=== PATIENT | male | born 1985 | race African-American/Black ===

== ENCOUNTER 2018-10-23 21:51 | Emergency (ER) | payer SELFPAY ==
[~2018-10-23] VITALS: Ht 175.3 cm; Wt 95.7 kg
[2018-10-23 22:00] VITALS: BP 176/99
[2018-10-23] MEDS ORDERED: HYDR-3164 PO (23:55)
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
== END 2018-10-24 00:18 | disposition home or self-care (01) ==
LOC: ER 21:51
DX: S62.344A Nondisplaced fracture of base of fourth metacarpal bone, right hand, initial encounter for closed fracture (principal); S62.346A Nondisplaced fracture of base of fifth metacarpal bone, right hand, initial encounter for closed fracture; R07.81 Pleurodynia; Z72.0 Tobacco use; Z88.0 Allergy status to penicillin; V43.62XA Car passenger injured in collision with other type car in traffic accident, initial encounter; Y93.89 Activity, other specified; Y92.410 Unspecified street and highway as the place of occurrence of the external cause; Y99.8 Other external cause status
CPT/HCPCS: 29125; 29130; 71101; 73130; 99283

== ENCOUNTER 2018-10-25 03:45 | Emergency (ER) | payer SELFPAY ==
[~2018-10-25] VITALS: Ht 188 cm; Wt 95.7 kg
[~2018-10-25 03:45] MED LIST: HYDR-3164 PO
[2018-10-25 04:18] LABS: BASO # 0.1 x10^3/uL (0.0-0.2); BASO % 1 % (0-3); EOS % 0 % (0-3); HEMATOCRIT 39.7 % (39.0-53.0); HEMOGLOBIN 12.8 g/dL (13.0-17.5); LYMPH # 2.2 x10^3/uL (1.0-4.8); LYMPH % 17 % (24-48); MEAN CORPUSCULAR HEMOGLOBIN 27 pg (25-35); MEAN CORPUSCULAR HGB CONC 32 g/dL (31-37); MEAN CORPUSCULAR VOLUME 83 fL (79-100); MONO # 0.6 x10^3/uL (0.0-1.1); MONO % 5 % (0-9); NEUT # 9.7 x10^3uL (1.8-7.7); NEUT % 77 % (31-73); PLATELET COUNT 284 x10^3/uL (140-400); RED CELL DISTRIBUTION WIDTH 14.7 % (11.5-14.5); WHITE BLOOD COUNT 12.6 x10^3/uL (4.0-11.0)
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
[2018-10-25 04:24] LABS: CALCIUM 8.9 mg/dL (8.5-10.1); CREATININE 1.2 mg/dL (0.7-1.3); GFR 85.4; POTASSIUM 3.2 mmol/L (3.5-5.1)
[2018-10-25] MEDS ORDERED: IV NORMAL SALINE 1000ML BAG 1,000 ML IV ONE (04:30)
[2018-10-25 04:31] LABS: ALBUMIN 3.9 g/dL (3.4-5.0); ALBUMIN/GLOBULIN RATIO 1.2 (1.0-1.7); TOTAL PROTEIN 7.1 g/dL (6.4-8.2)
[2018-10-25] MEDS ORDERED: POTASSIUM CHLORIDE 20 MEQ TABLET.ER. PO ONE (05:00)
[2018-10-25 05:23] VITALS: BP 178/106
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
--- NOTE | 2018-10-25 07:49 | RAD ---
CHEST PA LATERAL Technique: PA and lateral views of the chest were obtained. Clinical History: CHEST PAIN. Comparison: September 23, 2008. Findings: The heart and pulmonary vasculature appear within normal limits. The lungs are clear. The pleural margins are clear. Impression: No acute chest process is seen. Electronically signed by: Joaquín James III, MD (10/25/2018 7:46 AM) [facility]
--- NOTE | 2018-10-25 10:52 | EKG ---
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
== END 2018-10-25 05:40 | disposition home or self-care (01) ==
LOC: ER 03:45
DX: S62.316D Displaced fracture of base of fifth metacarpal bone, right hand, subsequent encounter for fracture with routine healing (principal); R07.89 Other chest pain; E87.6 Hypokalemia; I10 Essential (primary) hypertension; Z88.0 Allergy status to penicillin; X58.XXXA Exposure to other specified factors, initial encounter
CPT/HCPCS: 29125; 36415; 71046; 73130; 80053; 82553; 83690; 83735; 84484; 85025; 93005; 99284; J7030

== ENCOUNTER 2021-05-12 16:14 | Emergency (ER) | payer SELFPAY ==
[~2021-05-12] VITALS: Ht 175.3 cm; Wt 91.4 kg
--- NOTE | 2021-05-12 16:52 | PHYS DOC ---
Past Medical History Past Medical History: Hypertension Past Surgical History: No Surgical History Smoking Status: Never Smoker Alcohol Use: None Drug Use: Marijuana General Adult EDM: Chief Complaint: HYPERTENSION HPI: HPI: 36-year-old male presents the emergency department with headache for 4 days he reports that the headache starts in the back of his neck and radiates toward the towards his forehead. He reports that his pain is intermittent, not related to anything in particular, developed gradually, not associate with any injury or trauma that he can report. There is no sudden onset of the headache when it started. He has had headaches in the past but states this 1 is more severe. He denies any nausea, vomiting, diarrhea, chest pain, shortness of breath, vision change, further pain anywhere else, abdominal pain. Review of Systems: Review of Systems: ROS otherwise negative except for what was mentioned in HPI Heart Score: C/O Chest Pain: No Allergies: Allergies: Allergies Coded Allergies Type Severity Reaction Last Updated Verified Penicillins Allergy Intermediate 10/23/18 Yes Physical Exam: PE: Constitutional: No acute distress, non-toxic appearance. HENT: Atraumatic, bilateral external ears normal, nose normal. Eyes: PERRLA, EOMI, conjunctiva normal, no discharge. Neck: Normal range of motion, supple, no stridor. Cardiovascular: Heart rate regular rhythm. 2+ radial pulses Lungs & Thorax: No respiratory distress, symmetrical expansion. Bilateral breath sounds clear to auscultation Abdomen: Soft, no tenderness Skin: Warm, dry. Extremities: No tenderness, no cyanosis, ROM intact, no edema. Neurologic: Alert and oriented X 3, cranial nerves II through XII are intact, normal motor function, normal sensory function, no focal deficits noted. Non ataxic gait. GCS 15. Psychologic: Affect normal, judgment normal, mood normal. Current Patient Data: Labs: Laboratory Tests Test 05/12/21 16:57 White Blood Count 12.0 x10^3/uL (4.0-11.0) Red Blood Count 5.09 x10^6/uL (4.30-5.70) Hemoglobin 13.9 g/dL (13.0-17.5) Hematocrit 42.0 % (39.0-53.0) Mean Corpuscular Volume 83 fL (79-100) Mean Corpuscular Hemoglobin 27 pg (25-35) Mean Corpuscular Hemoglobin Concent 33 g/dL (31-37) Red Cell Distribution Width 14.8 % (11.5-14.5) Platelet Count 271 x10^3/uL (140-400) Neutrophils (%) (Auto) 77 % (31-73) Lymphocytes (%) (Auto) 16 % (24-48) Monocytes (%) (Auto) 6 % (0-9) Eosinophils (%) (Auto) 1 % (0-3) Basophils (%) (Auto) 1 % (0-3) Neutrophils # (Auto) 9.2 x10^3/uL (1.8-7.7) Lymphocytes # (Auto) 1.9 x10^3/uL (1.0-4.8) Monocytes # (Auto) 0.7 x10^3/uL (0.0-1.1) Eosinophils # (Auto) 0.1 x10^3/uL (0.0-0.7) Basophils # (Auto) 0.1 x10^3/uL (0.0-0.2) Sodium Level 138 mmol/L (136-145) Potassium Level 3.6 mmol/L (3.5-5.1) Chloride Level 100 mmol/L (98-107) Carbon Dioxide Level 29 mmol/L (21-32) Anion Gap 9 (6-14) Blood Urea Nitrogen 14 mg/dL (8-26) Creatinine 1.1 mg/dL (0.7-1.3) Estimated GFR (Cockcroft-Gault) 92.7 Glucose Level 99 mg/dL (70-99) Calcium Level 8.6 mg/dL (8.5-10.1) Troponin I Quantitative < 0.017 ng/mL (0.000-0.055) SG-Kno-J-Type Natriuretic Peptide 218 pg/mL (0-124) Vital Signs: Vital Signs Date Time Temp Pulse Resp B/P (MAP) Pulse Ox O2 Delivery O2 Flow Rate FiO2 05/12/21 16:35 98.1 84 16 178/126 (143) 16 98.1 EKG: EK: Normal sinus rhythm rate of 65, ST elevation is present in V3, T wave inversions are present in V4 through V6 there is no further reciprocal change. No ectopic beats, normal axis, normal ND, QRS, and QTc intervals. Impression: Compared with EKG on 10/25/2018, or T wave inversions and change in V3 is not present. EKG was discussed with Dr. Villanueva, elects not to page STEMI. Will repeat EKG. interpreted by me, Prince Enriquez D.O. 1727: Repeat EKG shows no acute change to above. Interpreted by me. Radiology/Procedures: Radiology/Procedures: EXAM: Head CT without contrast. HISTORY: Headache. TECHNIQUE: Computed tomographic images of the head were obtained without contrast. *One or more of the following individualized dose reduction techniques were utilized for this examination: 1. Automated exposure control. 2. Adjustment of the mA and/or kV according to patient size. 3. Use of iterative reconstruction technique. COMPARISON: None. FINDINGS: There is no acute or subacute extra-axial or intraparenchymal hemorrhage. There is no mass effect or midline shift. There is no hydrocephalus. The phillips-white matter differentiation pattern is intact. The orbits and visualized paranasal sinuses are unremarkable. The mastoid air cells are underpneumatized, a normal variant. IMPRESSION: No acute intracranial findings. Electronically signed by: Dena Epps MD (05/12/2021 5:11 PM) Course & Med Decision Making: Course & Med Decision Making I discussed the original EKG and the case with Dr. Villanueva after EKG was acquired and I read the EKG. No further intervention at this time, will require labs and repeat EKG Repeat EKG was unremarkable Labs are within normal limits Patient felt much better after interventions which included Compazine, Benadryl. Patient was discharged in stable condition. He is not driving home. Patient has no evidence of acute end organ damage from hypertension. I counseled the patient on their high blood pressure and the need to follow-up in the clinic to get this addressed. I provided resources for him to obtain a primary care physician and recommended that he rechecks his blood pressure. He was advised not to drive until tomorrow morning. My Orders - PRINCE ENRIQUEZ DO Procedure Category Date Status Time Prochlorperazine PHA 05/12/21 Complete (Compazine) 17:00 Diphenhydramine PHA 05/12/21 Complete (Benadryl) 17:00 Iv Normal Saline PHA 05/12/21 In Process 1000ml Bag (Iv Sodium 17:00 Ketorolac 15mg Vial PHA 05/12/21 Complete (Toradol 15mg Vial) 17:00 Ct Head Wo Contrast CT 05/12/21 Resulted 16:49 Troponini LAB 05/12/21 Complete 16:56 Nt-Pro Bnp LAB 05/12/21 Complete 16:56 12 Lead Ekg EKG 05/12/21 Complete 17:15 Cbc W Autodiff LAB 05/12/21 Complete 17:33 Basic Metabolic Panel LAB 05/12/21 Complete 17:33 Departure Departure Impression: Primary Impression: Migraine headache Additional Impression: Elevated blood pressure reading Disposition: HOME / SELF CARE / HOMELESS Condition: STABLE Referrals: NO PCP (PCP) Patient Instructions: Migraine Headache, Kozj-is-Kseu Additional Instructions: You were seen in the Emergency Department for headache. Please drink plenty of fluids -- at least 6-8 glasses of water per day. Dehydration can often precipitate headaches. Avoid alcohol and sugary or caffeinated beverages. Return to the Emergency Department, day or night, if you develop recurrent or worsening headache, vision changes, difficulty eating or drinking due to nausea or vomiting, weakness or numbness in the limbs, difficulty walking or fever. . You need to follow up with the medicine clinic for a repeat check and further evaluation and treatment of your blood pressure, which was elevated in the emergency department. It is important to have a primary doctor further investigate your blood pressure issues. You should return to the ED if you develop chest pain, shortness of breath, severe headache, or any other new or concerning symptoms. Losing some weight and improving your diet will be helpful in reducing your blood pressure as well. PRINCE ENRIQUEZ DO May 12, 2021 16:52
[2021-05-12] MEDS ORDERED: IV NORMAL SALINE 1000ML BAG 1,000 ML IV ONE (17:00)
[2021-05-12] MEDS ORDERED: KETOROLAC 15 MG/ML VIAL. IVP ONE (17:00)
[2021-05-12] MEDS ORDERED: diphenhydrAMINE 50 MG/ML VIAL IVP ONE (17:00)
[2021-05-12] MEDS ORDERED: PROCHLORPERAZINE 10 MG/2 ML VIAL. IV ONE (17:00)
--- NOTE | 2021-05-12 17:14 | RAD ---
EXAM: Head CT without contrast. HISTORY: Headache. TECHNIQUE: Computed tomographic images of the head were obtained without contrast. *One or more of the following individualized dose reduction techniques were utilized for this examina tion: 1. Automated exposure control. 2. Adjustment of the mA and/or kV according to patient size. 3. Use of iterative reconstruction technique. COMPARISON: None. FINDINGS: There is no acute or subacute extra-axial or intraparenchymal hemorrhage. There is no mass effect or midline shift. There is no hydrocephalus. The phillips-white matter differentiation pattern is intact. The orbits and visualized paranasal sinuses are unremarkable. The mastoid air cells are underpneumatized, a normal variant. IMPRESSION: No acute intracranial findings. Electronically signed by: Dena Epps MD (05/12/2021 5:11 PM) [id number]
--- NOTE | 2021-05-12 17:29 | EKG ---
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
[2021-05-12 17:42] LABS: BASO # 0.1 x10^3/uL (0.0-0.2); BASO % 1 % (0-3); EOS # 0.1 x10^3/uL (0.0-0.7); EOS % 1 % (0-3); HEMOGLOBIN 13.9 g/dL (13.0-17.5); LYMPH # 1.9 x10^3/uL (1.0-4.8); LYMPH % 16 % (24-48); MEAN CORPUSCULAR HEMOGLOBIN 27 pg (25-35); MEAN CORPUSCULAR HGB CONC 33 g/dL (31-37); MEAN CORPUSCULAR VOLUME 83 fL (79-100); MONO # 0.7 x10^3/uL (0.0-1.1); MONO % 6 % (0-9); NEUT # 9.2 x10^3/uL (1.8-7.7); NEUT % 77 % (31-73); PLATELET COUNT 271 x10^3/uL (140-400); RED BLOOD COUNT 5.09 x10^6/uL (4.30-5.70); RED CELL DISTRIBUTION WIDTH 14.8 % (11.5-14.5)
[2021-05-12 17:45] LABS: CALCIUM 8.6 mg/dL (8.5-10.1); CREATININE 1.1 mg/dL (0.7-1.3); GFR 92.7; POTASSIUM 3.6 mmol/L (3.5-5.1)
[2021-05-12] MEDS ORDERED: cloNIDine HCL 0.1 MG TABLET PO ONE (18:45)
[2021-05-12 20:37] VITALS: BP 165/106
== END 2021-05-12 20:50 | disposition home or self-care (01) ==
LOC: ER 16:14
DX: G43.909 Migraine, unspecified, not intractable, without status migrainosus (principal); I10 Essential (primary) hypertension; Z88.0 Allergy status to penicillin
CPT/HCPCS: 36415; 70450; 80048; 83880; 84484; 85025; 93005; 96361; 96374; 96375; 99285; J0780; J1200; J1885; J7030